=== PATIENT | female | born 1955 | race Caucasian/White ===

== ENCOUNTER 2024-08-16 16:48 | Emergency (ER) | payer MEDICARE, SELFPAY ==
[2024-08-16 16:52] VITALS: BP 134/84; PULSE 79; RESP 18; TEMP 36.5; O2SAT 95
[2024-08-16 16:54] VITALS: BP 134/84; PULSE 79; RESP 18; TEMP 36.5; O2SAT 95
[2024-08-16] MEDS: Mupirocin 2% Oint. 22 GM TUBE TP (17:14)
--- NOTE | 2024-08-16 17:16 | ED.GENADUL_ITS ---
Discharge Plan Disposition Patient Disposition: Home Discharge Details Clinical Impression: Nasal folliculitis ED Provider: Michelle Elder Home Meds and New Rx's Prescriptions: No Action paroxetine HCl [Paxil] 20 mg tablet 25 mg PO DAILY multivitamin [Daily Multi-Vitamin] Tablet 1 tab PO DAILY cholecalciferol (vitamin D3) [Vitamin D3] 25 mcg (1,000 unit) tablet 3,000 unit PO DAILY Discharge Instructions Instructions: Bacterial Folliculitis (DC) Additional Instructions: Please follow-up with express care for reassessment if you are not feeling significantly better or if symptoms worsen over the next week. Apply a thin layer of the mupirocin twice daily to your naris using a Q-tip. Apply warm compresses for 10 to 15 minutes at a time 4-5 times a day. Avoid digital manipulation or heavy nose blowing. Sure to wash your hands before and after touching your nose. Saline nasal spray may also be helpful to keep your nares moisturized, be sure to rinse off the tip of the spray bottle after each use. Return to emergency care for develop new fever/chills, swelling, difficulty breathing, increasing pain despite treatment, or if you are very worried and need to be rechecked again immediately HPI General Date/Time Provider Initiated Documentation: 08/16/24 16:53 . HPI Narrative: Prabha is a 69-year-old female who presents to the emergency department for evaluation of nasal concerns. Accompanied by . Reports small, round, white nasal mucosal lesions just inside the nares bilaterally, first noticed Saturday (4 days ago). One lesion causes discomfort, the other is painless. She reports she has been engaged in outdoor activities with rhinorrhea and frequent nose blowing attributed to allergies. Denies associated fevers, chills, swelling, congestion, pharyngitis, ear pain, difficulty breathing, cough or other sores/lesions on body. No history of antibiotic-resistant infections, cardiac/pulmonary issues, or diabetes. Upcoming appointment with new physician on 09/08/2024. Related Data Home Medications ?Medication ?Instructions ?Recorded ?Confirmed cholecalciferol (vitamin D3) 25 3,000 unit PO DAILY 08/16/24 08/16/24 mcg (1,000 unit) tablet (Vitamin D3) multivitamin (Daily Multi-Vitamin 1 tab PO DAILY 08/16/24 08/16/24 tablet) paroxetine HCl 20 mg tablet (Paxil) 25 mg PO DAILY 08/16/24 08/16/24 Allergies Allergy/AdvReac Type Severity Reaction Status Date / Time Sulfa (Sulfonamide AdvReac Intermediate Skin Rash Verified 08/16/24 17:25 Antibiotics) General Stated Complaint: GenMedical JUAN F: 4 Review of Systems Narrative: See HPI Exam Narrative Exam Narrative: General Appearance: Normal, pt is alert and oriented, no acute distress Vital signs: Within normal limits. HEENT: Mild nasal folliculitis; no drainage or open lesions septum intact. No swelling or erythema noted to outside skin of nose. TMs pearly chaudhary, translucent. Ear canals normal except for superficial scratch in R ear canal. Respiratory: Easy work of breathing, able to speak in full sentences. Skin: Warm and dry, no rash. Neurological: Facial strength normal Psychiatric: Normal. Course Vital Signs Vital signs: Vital Signs Temperature 36.5 C 08/16/24 16:52 Pulse 79 08/16/24 16:52 Respiratory Rate 18 08/16/24 16:52 Blood Pressure 134/84 08/16/24 16:52 Pulse Oximetry 95 08/16/24 16:52 Temperature 36.5 C 08/16/24 16:54 Pulse 79 08/16/24 16:54 Respiratory Rate 18 08/16/24 16:54 Blood Pressure 134/84 08/16/24 16:54 Pulse Oximetry 95 08/16/24 16:54 Medical Decision Making Initial Assessment: Mild folliculitis likely due to nasal trauma from frequent wiping. No red flags concerning for deep space infection, extension of infection beyond superficial mucosal layer or respiratory compromise ED Course: - Applied mupirocin ointment with Q-tip around nostril base. - Advised to avoid cross-contamination. - Recommended avoiding scratching. - Suggested managing allergy symptoms with Claritin if needed. - Advised applying warm compresses to nose for 10-15 minutes. - Instructed to monitor for worsening signs and seek immediate medical attention at [facility] or [facility] in [place] if symptoms escalate. - Identified superficial scratch in ear canal likely from Q-tip use. - Recommended avoiding Q-tips and cleaning ears with warm washcloth on fingertip. Final Assessment: Mild nasal folliculitis due to trauma from frequent wiping and superficial scratch in ear canal from Q-tip use. Treatment includes mupirocin ointment, warm compresses, and avoiding further irritation. Clinical Impression: - Nasal folliculitis - Ear discomfort Disposition: - Discharge - Follow-Up: Monitor symptoms and seek care at [facility] or [facility] if symptoms worsen. Patient Education: Educated on proper application of mupirocin, avoiding scratching, managing allergy symptoms, and cleaning ears without Q-tips. MDM Components Evaluation: - Number of Differential Diagnoses or Management Options: Nasal folliculitis, ear discomfort - Amount and Complexity of Data Reviewed: Physical examination, patient history - Risk of Complication and Morbidity or Mortality: Low risk with proper topical treatment and monitoring. Patient consented to the use of KAIMLA Quality:SDOH Health Related Social Needs: No Data to Display PFSH All Active Problems (Updated 08/16/24 @ 17:12 by Michelle Doss) Nasal folliculitis (Acute) Social History Smoking/Tobacco Use Status: Never Smoking risk assessment performed?: Yes Alcohol Intake: current Alcohol Intake frequency: holidays/special occasions only Substance use type: does not use
[2024-08-16 17:22] VITALS: BP 134/84; PULSE 79; RESP 15; RESP 18; TEMP 36.5; O2SAT 95
== END 2024-08-16 17:26 | disposition home or self-care (01) ==
LOC: ER 17:40
PROVIDERS: Emergency Provider Nurse Practitioner Family
DX: L73.8 Other specified follicular disorders (principal)
CPT/HCPCS: 99283 ×2

== ENCOUNTER 2024-08-19 13:34 | Emergency (ER) | payer MEDICARE, SELFPAY ==
[2024-08-19 13:54] VITALS: BP 133/80; PULSE 85; RESP 16; TEMP 36.3; O2SAT 95
--- NOTE | 2024-08-21 13:13 | ED.GENADUL_ITS ---
Discharge Plan Disposition Patient Disposition: Home Discharge Details Clinical Impression: Nasal folliculitis Primary Care Provider: [facility] Provider: Sheba Cabezas Home Meds and New Rx's Prescriptions: Continued paroxetine HCl [Paxil] 20 mg tablet 25 mg PO DAILY multivitamin [Daily Multi-Vitamin] Tablet 1 tab PO DAILY cholecalciferol (vitamin D3) [Vitamin D3] 25 mcg (1,000 unit) tablet 3,000 unit PO DAILY Discharge Data Discharge Date/Time-TO BE ENTERED AT DEPARTURE: 08/19/24 18:16 HPI General Date/Time Provider Initiated Documentation: 08/19/24 14:29 . HPI Narrative: this 69 yo female presents with white and red spots reported to bilateral anterior nares. states using topical mupirocin for a nasal folliculitis. denies pain, swelling, or any additional complaints. pt is reportedly otherwise healthy Related Data Home Medications ?Medication ?Instructions ?Recorded ?Confirmed cholecalciferol (vitamin D3) 25 3,000 unit PO DAILY 08/16/24 08/19/24 mcg (1,000 unit) tablet (Vitamin D3) multivitamin (Daily Multi-Vitamin 1 tab PO DAILY 08/16/24 08/19/24 tablet) paroxetine HCl 20 mg tablet (Paxil) 25 mg PO DAILY 08/16/24 08/19/24 Allergies Allergy/AdvReac Type Severity Reaction Status Date / Time Sulfa (Sulfonamide AdvReac Intermediate Skin Rash Verified 08/19/24 14:03 Antibiotics) General Stated Complaint: GenMedical JUAN F: 4 Exam Narrative Exam Narrative: 69 yo f in no acute distress. normal appearing nasal mucosa without any abnormal lesions noted. remainder of exam is completely benign. Course Vital Signs Vital signs: Vital Signs Temperature 36.3 C L 08/19/24 13:54 Pulse 85 08/19/24 13:54 Respiratory Rate 16 08/19/24 13:54 Blood Pressure 133/80 08/19/24 13:54 Pulse Oximetry 95 08/19/24 13:54 Temperature 36.3 C L 08/19/24 13:54 Temperature Source Oral 08/19/24 13:54 Pulse 85 08/19/24 13:54 Respiratory Rate 16 08/19/24 13:54 Blood Pressure 133/80 08/19/24 13:54 Blood Pressure Position Sitting 08/19/24 13:54 Pulse Oximetry 95 08/19/24 13:54 Oxygen Delivery Method Room Air 08/19/24 13:54 Oxygen Flow Rate 0 08/19/24 13:54 Medical Decision Making 69 yo female presents in NAD. well-appearing exam without evidence of cellulitis or follicultis. pt made aware that no indication for additional treatment at this time. recommendation to follow-up with pcp as needed. return precautions reviewed Quality:SDOH Health Related Social Needs: No Data to Display PFSH All Active Problems (Updated 08/19/24 @ 14:48 by LORA Blair) Nasal folliculitis (Acute) Social History Smoking/Tobacco Use Status: Never Smoking risk assessment performed?: Yes Alcohol Intake: current Alcohol Intake frequency: holidays/special occasions only Alcohol type: hard liquor Substance use type: does not use PAWSS Have you Been Recently Intoxicated or Drunk Within the Last 30 days?: No Have you Ever Experienced Previous Episodes of Alcohol Withdrawal?: No Have you ever Experienced Withdrawal Seizures?: No Have you ever Experienced Delirium Tremens(DT)s?: No Have you ever undergone Alcohol Rehabilitation Treatment (i.e, inpt ot outpatient treatment programs)?: No Have you ever Experienced Blackouts?: No Have you ever Combined Alcohol with other Downers within the last 90 days?: No Have you ever Combined Alcohol with any other Substance of Abuse during the last 90 days?: No Positive Blood Alcohol level on Presentation? [PCS.BAL]: No Evidence of Increased Autonomic Activity (i.e. HR>120, tremor, sweating, agitation, nausea)?: No Result: 0
== END 2024-08-19 18:16 | disposition home or self-care (01) ==
PROVIDERS: Emergency Provider Physician Assistant
DX: L73.8 Other specified follicular disorders (principal)
CPT/HCPCS: 99283; 99282